=== PATIENT | female | born 2005 | race Caucasian/White ===

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

== ENCOUNTER 2025-01-22 05:04 | Inpatient (IN) | payer OTHER ==
[2025-01-22] MEDS: Lactated Ringers 1,000 ML IV ONE (05:14)
[2025-01-22] MEDS: Lactated Ringers 1,000 ML IV SCH (05:14)
[2025-01-22] MEDS ORDERED: CEFAZOLIN SODIUM ONE (05:42)
[2025-01-22 05:43] LABS: Hematocrit 35.3 % (34.1-44.9); Hemoglobin 11.3 g/dL (11.2-15.7); Mean Corpuscular Hemoglobin 28.0 pg (25.6-32.2); Mean Corpuscular Hgb Concent. 32.0 g/dL (32.2-35.5); Platelet Count 284 x10^3/uL (182-369); Red Blood Count 4.03 x10^6/uL (3.93-5.22); White Blood Count 11.4 x10^3/uL (3.98-10.04)
[2025-01-22 05:50] LABS: Glucose, Urine Negative (Negative); Protein,Urine Dip Negative (Negative); RBC 0-2 /HPF (0-5)
[2025-01-22 05:56] LABS: INR 0.88 (0.8-3.0); PROTIME 9.7 SECONDS (9.4-12.5); PTT 24.9 SECONDS (25.1-36.5)
[2025-01-22 05:59] LABS: Amphetamine,Urine NEGATIVE (NEGATIVE); Barbiturate,Urine NEGATIVE (NEGATIVE); Benzodiazepine,Urine NEGATIVE (NEGATIVE); Cocaine,Urine NEGATIVE (NEGATIVE); Methadone,Urine NEGATIVE (NEGATIVE); Opiate,Urine NEGATIVE (NEGATIVE); PCP,Urine NEGATIVE (NEGATIVE); THC,Urine NEGATIVE (NEGATIVE)
[2025-01-22] MEDS: Reglan 10 MG/2 ML IV SCH (06:00)
[2025-01-22] MEDS: Pepcid 20 MG VIAL IV SCH (06:00)
[2025-01-22] MEDS: SOD CITRATE-CITRIC ACID SOLN PO SCH (06:01)
[2025-01-22 06:19] LABS: ABO TYPING O; RH TYPING POSITIVE
[2025-01-22] MEDS ORDERED: Astramorph-Pf 5 MG/10 ML ONE (06:59)
[2025-01-22] MEDS ORDERED: SUBLIMAZE 100 MCG/2 ML ONE (06:59)
[2025-01-22] MEDS ORDERED: PHENYLEPHRINE HCL ONE (07:04)
[2025-01-22] MEDS ORDERED: Zofran 4 MG/2 ML VIAL ONE (07:05)
[2025-01-22] MEDS ORDERED: Dermoplast Spray TP PRN (07:35)
[2025-01-22] MEDS ORDERED: Mylicon 80MG PO PRN (07:35)
[2025-01-22] MEDS ORDERED: Dulcolax 10 MG SUPP PR PRN (07:35)
[2025-01-22] MEDS ORDERED: Pitocin 10 UNITS/ML ONE (07:47)
[2025-01-22] MEDS ORDERED: propofoL IV ONE (07:57)
[2025-01-22] MEDS ORDERED: Nubain 10 MG/ML IV PRN (08:30)
[2025-01-22] MEDS ORDERED: Zofran 4 MG/2 ML VIAL IV PRN (08:30)
[2025-01-22] MEDS ORDERED: HOLD NARCOTIC ANALGESICS AND SEDATIVES X24 HR MC PRN (08:30)
[2025-01-22] MEDS ORDERED: MORPHINE SULFATE 2 MG INJ IV PRN (08:30)
[2025-01-22] MEDS ORDERED: BENADRYL 50 MG/ML IV PRN (08:30)
[2025-01-22] MEDS ORDERED: DEMEROL 50 MG IV PRN (08:30)
[2025-01-22] MEDS ORDERED: Narcan 0.4 MG/ML IV PRN (09:25)
[2025-01-22] MEDS ORDERED: TYLENOL EXTRA STRENGTH 500 MG PO PRN (09:25)
[2025-01-22] MEDS ORDERED: TUCKS TP PRN (09:25)
[2025-01-22] MEDS ORDERED: CORTISONE 1% CREAM TP PRN (09:25)
[2025-01-22] MEDS: Dextrose 5%-Lr IV Solution 1000 ML 1,000 ML IV SCH (09:34)
[2025-01-22] MEDS: CLARITIN 10 MG PO PRN (09:51)
[2025-01-22] MEDS ORDERED: Docusate Sodium 100 MG PO SCH (10:00)
[2025-01-22] MEDS: PERCOCET TABLET 5/325MG PO PRN (13:47)
[2025-01-22 14:39] LABS: Glucose, Urine Negative (Negative); Protein,Urine Dip Negative (Negative); RBC 0-2 /HPF (0-5); WBC 0-2 /HPF (0-5)
[2025-01-22] MEDS ORDERED: Docusate Sodium 100 MG ONE (20:08)
[2025-01-22] MEDS: Docusate Sodium 100 MG PO SCH (20:10)
[2025-01-22] MEDS: LANSINOH 40 GM TOP PRN (23:08)
[2025-01-23] MEDS: MOTRIN 400 MG PO PRN (05:51)
[2025-01-23 05:58] LABS: BASOPHIL % 0.2 % (0.1-1.2); Basophil (Absolute #) 0.03 x10^3/uL (0.01-0.08); Eosinophil (Absolute #) 0.02 x10^3/uL (0.04-0.36); Hematocrit 30.6 % (34.1-44.9); Hemoglobin 9.9 g/dL (11.2-15.7); IMMATURE GRAN # 0.09 x10^3u/L (0.001-0.031); IMMATURE GRAN % 0.6 % (0.001-0.429); Lymphocyte (Absolute #) 2.47 x10^3/uL (1.18-3.74); Mean Corpuscular Hemoglobin 28.5 pg (25.6-32.2); Mean Corpuscular Hgb Concent. 32.4 g/dL (32.2-35.5); Monocyte (Absolute #) 1.27 x10^3/uL (0.24-0.86); NUCLEATED RBC # 0.00 x10^3u/L (0.00-0.012); NUCLEATED RBC % 0.0 % (0.00-0.2); Platelet Count 274 x10^3/uL (182-369); Red Blood Count 3.47 x10^6/uL (3.93-5.22); White Blood Count 14.3 x10^3/uL (3.98-10.04)
[2025-01-23] MEDS ORDERED: Sodium Chloride 0.9% 10 ML FLUSH Syringe IJ PRN (07:00)
[2025-01-23] MEDS: FERREX 150 PO SCH (09:03)
[2025-01-23] MEDS: NORCO 5/325 MG PO PRN (09:04)
[2025-01-23 11:25] LABS: RPR Non Reactive (Non Reactive)
--- NOTE | 2025-01-24 08:21 | PCM.DS ---
Discharge Summary Date of Admission: 01/22/25 05:04 Admitting Physician: RIVER SORIANO Consults: Consults on Case 01/22/25 00:42 Notify Physician OF ADMISSION 01/22/25 07:38 Notify Anesthesia Provider PRN 01/22/25 09:25 Notify Anesthesia Provider PRN 01/22/25 10:23 Navigation ONCE Primary Care Provider: GUERLINE DOUGHERTY Allergies Allergies No Known Drug Allergies Allergy (Verified 12/18/23 05:43) Hospital Summary - Hospital Course Hospital Course: patient had a repeat with no complications. doing well post-op - Vitals & Intake/Output Vital Signs: Vital Signs Temperature 97.9 F 01/24/25 04:00 Pulse Rate 63 01/24/25 04:00 Respiratory Rate 16 01/24/25 04:00 Blood Pressure 122/67 01/24/25 04:00 O2 Sat by Pulse Oximetry 96 01/24/25 04:00 Intake & Output: Intake & Output 01/21/25 01/22/25 01/23/25 01/24/25 11:59 11:59 11:59 11:59 Intake Total 0 1000 Output Total 700 1725 Balance -700 -725 Weight 107.048 kg - Lab Result Diagrams: 01/23/25 05:56 Lab Results-Last 24 Hrs: Lab Results-Last 24 Hours 01/22/25 Range/Units 05:30 RPR Non Reactive (Non Reactive) Micro Results-Entire Visit: Microbiology 01/22/25 07:50 Urine Culture - Final Catherized NO GROWTH 01/22/25 05:15 Urine Culture - Final Clean Catch Midstream MIXED ALIYAH; 3 OR MORE TYPES. NO PREDOMINANT ORGANISM. NO FURTHER WORKUP. PLEASE RESUBMIT IF CLINICALLY INDICATED. Discharge Exam General Appearance: no apparent distress, obese Neurologic Exam: alert, oriented x 3 Respiratory Exam: normal breath sounds, lungs clear, No respiratory distress Cardiovascular Exam: regular rate/rhythm, normal heart sounds Gastrointestinal/Abdomen Exam: soft, other (incision clean, dry, intact and well approximated), No tenderness, No mass Skin Exam: normal color, warm, dry Final Diagnosis/Problem List - Final Discharge Diagnosis/Problem (1) delivery delivered Current Visit: Yes Status: Acute Code(s): O82 - ENCOUNTER FOR DELIVERY WITHOUT INDICATION - Discharge Disposition: Home, Self-Care Condition: Stable Prescriptions: New Hydrocodone/Acetaminophen [Hydrocodone-Acetamin 5-325 mg] 1 tab PO Q6HPRN PRN #20 tablet MDD 4 PRN Reason: Pain Continue 95/Iron Fum/Folic/Dha [ + Dha Combo Pack] 1 each PO DAILY 60 Days #60 tab Follow up with: RIVER SORIANO MD [ACTIVE STAFF, FAMILY PRACTICE] - 1 Week
[2025-01-24 08:37] VITALS: O2SAT 98
[2025-01-24] MEDS: Adacel Vial IM ONE (10:35)
[2025-01-24 14:24] VITALS: BP 112/54; PULSE 74; RESP 16; TEMP 98.1
--- NOTE | 2025-01-25 10:45 | OP ---
SURGERY DATE/TIME: 01/22/2025 [id number] PREOPERATIVE DIAGNOSES: 1) Term intrauterine . 2) History of prior section. POSTOPERATIVE DIAGNOSES: 1) Term intrauterine . 2) History of prior section. PROCEDURE: Repeat low transverse section. SURGEON: Pablo Marx MD ANESTHESIA: Spinal by Tarik Neely CRNA QUANTITATIVE BLOOD LOSS: 372 mL. URINE: 200 mL of clear, straw-colored urine. SPECIMENS: None. DESCRIPTION OF PROCEDURE AND FINDINGS: After informed written consent was obtained, the patient was taken to the operating room. She underwent spinal anesthesia and had a Hernandes catheter inserted, then was prepped and draped in the usual sterile fashion. After adequate level of anesthesia was confirmed, low transverse skin incision was made by knife and carried down through the subcutaneous fat to the level of the fascia. Fascia was nicked on both sides of the midline and extended into horizontal using curved Gu scissors. Superior free edge of the fascia was grasped with Patricio clamps, and the underlying rectus muscles were dissected free. The same was repeated inferiorly. Peritoneal cavity was entered bluntly. There were some adhesions in the anterior surface of the uterus which were taken down with cautery carefully. Bladder flap was created and reflected over the lower uterine segment and horizontal uterine incision was made by knife and carried down to the amniotic membranes which were carefully artificially ruptured, and revealed clear fluid. Viable male was delivered from the vertex presentation with a loose nuchal x1. Oropharynx and nares were bulb suctioned free and then he was handed off to the waiting nursery team with a good strong cry immediately present upon delivery with good tone. Placenta was then manually extracted, and the uterus was exteriorized. Uterine cavity was sponge curetted clean with a lap sponge and then the uterine incision was closed with #1 chromic in a running locked fashion with good closure and good hemostasis achieved at that level. Posterior cul-de-sac was suctioned and then moist lap sponge was used to clean the posterior cul-de-sac. Next, the uterus was returned to the peritoneal cavity. Uterine incision was again noted to have good hemostasis and good closure at that level. Lateral gutters were wiped free of blood and clot. Next, the fascia was closed with 0 Vicryl in running fashion. Good closure and good hemostasis were achieved at that level. Subcutaneous fat was irrigated with warm sterile saline. Any areas of bleeding were cauterized with electrocautery. Finally, the skin layer was closed with 4-0 undyed Vicryl in a running subcuticular fashion. Steri-Strips and an occlusive dressing were placed over the incision and the patient was transferred to recovery room in good condition.
== END 2025-01-24 18:40 | disposition home or self-care (01) | DRG 788 ==
LOC: OB 05:04
PROVIDERS: ADMIT Family Medicine; ATTEND Family Medicine
PROC: 10D00Z1 Extraction of Products of Conception, Low, Open Approach (ICD-10-PCS; principal; 2025-01-22)
DX: O34.219 Maternal care for unspecified type scar from previous cesarean delivery (principal); Z3A.39 39 weeks gestation of pregnancy; Z37.0 Single live birth